=== PATIENT | female | born 1940 | race Caucasian/White ===

== ENCOUNTER 2016-10-12 13:01 | Inpatient (IN) | payer MEDICARE, OTHER ==
[~2016-10-12 13:01] MED LIST: ALPHA LIPOIC A PO; BLUEBERRY PO; BORON PO; CALCIUM PO; CALCIUM WITH V1 EAC2 PO; COD LIVER OIL1 CAP PO; COLACE100 M1 PO; COQ10 PO; CVS LUTEIN 401 EACH PO; DIGESTIVE ENZY1 EAC3 PO; DULCOLAX10 MG PR; ESTRIOL VG; GARLIC1 CAP PO; GLUCOSAMINE HC500 M1 PO; HYALURONIC ACID PO; LEVOTHROID50 MCG PO; LEVOTHROID75 MCG PO; MAGNESIUM PO; MAGNESIUM100 M1 PO; MULTIVITAMIN1 TAB PO; POLYETHYLENE G255 G1 PO; SYNTHROID75 MC1 PO; TENORMIN25 MG PO; TYLENOL325 M2 PO; VITAMIN B COMPLEX PO; VITAMIN B1250 MCG PO; VITAMIN D3 PO; VITAMIN D31000 UNI3 PO; VITAMIN K240 MCG PO; [UNRECOGNIZED DRUG - OTHER] PO
[2016-10-12] MEDS ORDERED: FLUDROCORTISON0.1 M1 PO (13:12)
[2016-10-12] MEDS ORDERED: MIRTAZAPINE7.5 M1 PO (13:16)
[2016-10-12 18:04] LABS: BASO % 0.1 % (0-2); HCT-HEMATOCRIT 41.2 % (34.0-49.0); HGB-HEMOGLOBIN 13.3 gm/dl (12.0-15.5); IMMATURE GRANULOCYTES ABSOLUTE 0.01 tho/cmm (0-0.03); IMMATURE GRANULOCYTES PERCENT 0.1 % (0-0.3); LYMPH % 3.2 % (20-45); LYMPH ABSOLUTE COUNT 0.3 tho/cmm (0.8-4.5); MCH (MEAN CORPUSCULAR HGB) 30.6 pg (28.0-32.0); MCHC MEAN CORPUSCULAR HGB CONC 32.3 % (32.0-36.0); MCV (MEAN CELL VOLUME) 94.7 fl (82.0-96.0); MONO % 9.7 % (0-12); MONOCYTE ABSOLUTE COUNT 0.9 tho/cmm (0.0-1.2); NEUTROPHIL ABSOLUTE COUNT 8.3 tho/cmm (1.6-8.0); NEUTROPHIL-AUTOMATED 8.3 tho/cmm (1.6-8.0); NEUTROPHILS % 86.9 % (40-80); PLATELET COUNT 209 tho/cmm (150-450); RED BLOOD COUNT 4.35 mil/cmm (4.00-5.20); RED CELL DISTRIBUTION WIDTH 12.6 % (12.4-16.4); WHITE BLOOD COUNT 9.6 tho/cmm (4.0-10.0)
[2016-10-12 18:23] LABS: ALB/GLOB RATIO 0.6 (0.8-2.0); ALBUMIN 2.6 g/dl (3.5-5.0); ALKALINE PHOSPHATASE 88 U/L (33-138); ALT/SGPT 48 U/L (12-78); AMYLASE 54 U/L (20-90); ANION GAP 11 mmol/L (0-20); AST/SGOT 33 U/L (10-40); BILIRUBIN,TOTAL 0.5 mg/dl (0-1.5); BLOOD UREA NITROGEN 19 mg/dl (6-24); CALCIUM 8.7 mg/dl (8.5-10.5); CARBON DIOXIDE-VENOUS 33 mmol/L (22-32); CHLORIDE 110 mmol/l (96-110); GLUCOSE 98 mg/dL (70-110); LIPASE 102 U/L (73-393); POTASSIUM 3.5 mmol/L (3.7-5.1); SODIUM 150 mmol/L (135-145); eGFR VALUE FOR BLACK >90 mL/Min
[2016-10-12 18:27] LABS: TSH-THYROID STIMULATING HORM. 0.64 uIU/ml (0.40-3.80)
[2016-10-12 20:03] LABS: URINE BILIRUBIN NEGATIVE (NEG); URINE BLOOD SMALL (NEG); URINE GLUCOSE (UA) NEGATIVE (NEG); URINE KETONE LARGE (NEG); URINE LEUKOCYTE ESTERASE NEGATIVE (NEG); URINE NITRITE NEGATIVE (NEG); URINE PROTEIN MODERATE (NEG)
[2016-10-12 20:21] LABS: URINE APPEARANCE CLEAR; URINE COLOR YELLOW
[2016-10-12 20:22] LABS: URINE MUCUS 1+
[2016-10-14 06:32] LABS: BASO % 0.1 % (0-2); EOS % 0.7 % (0-7); EOSINOPHIL ABSOLUTE COUNT 0.1 tho/cmm (0.0-0.7); HGB-HEMOGLOBIN 13.5 gm/dl (12.0-15.5); IMMATURE GRANULOCYTES ABSOLUTE 0.02 tho/cmm (0-0.03); IMMATURE GRANULOCYTES PERCENT 0.2 % (0-0.3); LYMPH % 6.7 % (20-45); LYMPH ABSOLUTE COUNT 0.6 tho/cmm (0.8-4.5); MCH (MEAN CORPUSCULAR HGB) 30.6 pg (28.0-32.0); MCHC MEAN CORPUSCULAR HGB CONC 32.9 % (32.0-36.0); MONO % 9.4 % (0-12); MONOCYTE ABSOLUTE COUNT 0.8 tho/cmm (0.0-1.2); NEUTROPHIL ABSOLUTE COUNT 7.1 tho/cmm (1.6-8.0); NEUTROPHIL-AUTOMATED 7.1 tho/cmm (1.6-8.0); NEUTROPHILS % 82.9 % (40-80); PLATELET COUNT 208 tho/cmm (150-450); RED BLOOD COUNT 4.41 mil/cmm (4.00-5.20); RED CELL DISTRIBUTION WIDTH 12.2 % (12.4-16.4); WHITE BLOOD COUNT 8.5 tho/cmm (4.0-10.0)
[2016-10-14 06:50] LABS: ANION GAP 9 mmol/L (0-20); BLOOD UREA NITROGEN 8 mg/dl (6-24); CALCIUM 8.8 mg/dl (8.5-10.5); CARBON DIOXIDE-VENOUS 32 mmol/L (22-32); CHLORIDE 106 mmol/l (96-110); CREATININE 0.36 mg/dl (0.50-1.10); GLUCOSE 126 mg/dL (70-110); MAGNESIUM 1.9 mg/dl (1.3-2.6); POTASSIUM 3.2 mmol/L (3.7-5.1); SODIUM 144 mmol/L (135-145); eGFR VALUE FOR BLACK >90 mL/Min
[2016-10-15 04:08] LABS: BASO % 0.3 % (0-2); EOS % 1.4 % (0-7); EOSINOPHIL ABSOLUTE COUNT 0.1 tho/cmm (0.0-0.7); HCT-HEMATOCRIT 42.5 % (34.0-49.0); HGB-HEMOGLOBIN 13.9 gm/dl (12.0-15.5); IMMATURE GRANULOCYTES ABSOLUTE 0.03 tho/cmm (0-0.03); IMMATURE GRANULOCYTES PERCENT 0.3 % (0-0.3); LYMPH ABSOLUTE COUNT 0.7 tho/cmm (0.8-4.5); MCH (MEAN CORPUSCULAR HGB) 30.3 pg (28.0-32.0); MCHC MEAN CORPUSCULAR HGB CONC 32.7 % (32.0-36.0); MCV (MEAN CELL VOLUME) 92.6 fl (82.0-96.0); MEAN PLATELET VOLUME 9.8 cmc (9.4-12.4); MONO % 8.9 % (0-12); MONOCYTE ABSOLUTE COUNT 0.8 tho/cmm (0.0-1.2); NEUTROPHIL ABSOLUTE COUNT 7.2 tho/cmm (1.6-8.0); NEUTROPHIL-AUTOMATED 7.2 tho/cmm (1.6-8.0); NEUTROPHILS % 81.1 % (40-80); PLATELET COUNT 218 tho/cmm (150-450); RED BLOOD COUNT 4.59 mil/cmm (4.00-5.20); RED CELL DISTRIBUTION WIDTH 12.4 % (12.4-16.4); WHITE BLOOD COUNT 8.8 tho/cmm (4.0-10.0)
[2016-10-15 05:15] LABS: ANION GAP 9 mmol/L (0-20); BLOOD UREA NITROGEN 5 mg/dl (6-24); CALCIUM 8.5 mg/dl (8.5-10.5); CARBON DIOXIDE-VENOUS 31 mmol/L (22-32); CHLORIDE 105 mmol/l (96-110); CREATININE 0.29 mg/dl (0.50-1.10); GLUCOSE 106 mg/dL (70-110); POTASSIUM 3.9 mmol/L (3.7-5.1); SODIUM 141 mmol/L (135-145); eGFR VALUE FOR BLACK >90 mL/Min
[2016-10-16 05:17] LABS: ANION GAP 8 mmol/L (0-20); BLOOD UREA NITROGEN 6 mg/dl (6-24); CALCIUM 9.2 mg/dl (8.5-10.5); CARBON DIOXIDE-VENOUS 34 mmol/L (22-32); CHLORIDE 105 mmol/l (96-110); CREATININE 0.38 mg/dl (0.50-1.10); GLUCOSE 103 mg/dL (70-110); POTASSIUM 3.8 mmol/L (3.7-5.1); SODIUM 143 mmol/L (135-145); eGFR VALUE FOR BLACK >90 mL/Min
[2016-10-17 06:27] LABS: ANION GAP 8 mmol/L (0-20); BLOOD UREA NITROGEN 9 mg/dl (6-24); CALCIUM 9.1 mg/dl (8.5-10.5); CARBON DIOXIDE-VENOUS 34 mmol/L (22-32); CHLORIDE 104 mmol/l (96-110); GLUCOSE 91 mg/dL (70-110); POTASSIUM 3.9 mmol/L (3.7-5.1); SODIUM 142 mmol/L (135-145)
[2016-10-17 06:30] LABS: CREATININE 0.48 mg/dl (0.50-1.10); eGFR VALUE FOR BLACK >90 mL/Min
[2016-10-19 06:30] LABS: ANION GAP 11 mmol/L (0-20); BLOOD UREA NITROGEN 16 mg/dl (6-24); CARBON DIOXIDE-VENOUS 34 mmol/L (22-32); CHLORIDE 101 mmol/l (96-110); CREATININE 0.47 mg/dl (0.50-1.10); GLUCOSE 76 mg/dL (70-110); MAGNESIUM 2.1 mg/dl (1.3-2.6); PHOSPHOROUS 3.3 mg/dl (2.5-4.9); POTASSIUM 4.2 mmol/L (3.7-5.1); SODIUM 142 mmol/L (135-145); eGFR VALUE FOR BLACK >90 mL/Min
--- NOTE | 2016-10-20 10:19 | NUR ---
PRESENT FOR VISIT WITH DR PINO, THEN STAYED AND SPOKE W PT. KATHY'S GOAL IS TO INCREASE STRENGTH, SHE MENTIONED HOSPICE AND STATED SHE IS NOT INTERSESTED IN THAT BECAUSE IT MEANS TO HER. REINFORCED DR PINO'S INFO THAT TO ACHIEVE PTS GOAL OF GETTING STRONGER SHE WILL HAVE TO USE HER MUSCLES - PARTICIPATE IN P.T. PT VERBALIZED UNDERSTANDING OF WHY SHE NEEDS TO EXERCISE. ALSO VERBALIZED REASON TO SIT UP AT LEAST AN HOUR AFTER HER TUBE FEED. PT SPOKE OF PAST SUCCESS WITH EXERCISING, ENCOURAGED HER TO USE THOSE PAST STRENGTHS TO ACHIEVE HER GOAL. PT WAS ABLE TO STATE HER PLAN TO ACHIEVE HER GOAL TO INCREASE STRENGTH. SHE WILL TAKE RESPONSIBILITY FOR HER CHOICES TO DO WHAT IS NECESSARY TO ACCOMPLISH HER GOALS. HER PRIMARY GOAL IS TO GET BACK HOME WITH HER CAT, NAHEED. SUPPORT GIVEN. BELONGINGS PACKED FOR TRANSFER TODAY TO [facility].
--- NOTE | 2016-10-20 11:23 | NUR ---
pt signed dnr/dni, copy to elizabeth mccabe and chart. pt wanting to use the bedpan, encouraged her to choose to walk to the BR. Pt refused. Reminded pt of her goal and consequence of choices. Pt is happy with choice to use Bedpan.
== END 2016-10-20 12:25 | DRG 391 ==
LOC: 5WF 13:01
PROVIDERS: Family Medicine; Hospitalist; Internal Medicine; Nurse Practitioner; ADMIT Family Medicine
PROC: 0DB58ZX Excision of Esophagus, Via Natural or Artificial Opening Endoscopic, Diagnostic (ICD-10-PCS; principal; 2016-10-14)
PROC: 0D758ZZ Dilation of Esophagus, Via Natural or Artificial Opening Endoscopic (ICD-10-PCS; 2016-10-14)
PROC: 0DH63UZ Insertion of Feeding Device into Stomach, Percutaneous Approach (ICD-10-PCS; 2016-10-18)
DX: K22.4 Dyskinesia of esophagus (principal); E43 Unspecified severe protein-calorie malnutrition; E87.0 Hyperosmolality and hypernatremia; R13.10 Dysphagia, unspecified; Q79.6 Ehlers-Danlos syndromes; Z68.1 Body mass index [BMI] 19.9 or less, adult; T17.920A Food in respiratory tract, part unspecified causing asphyxiation, initial encounter; I34.0 Nonrheumatic mitral (valve) insufficiency; R62.7 Adult failure to thrive; E03.9 Hypothyroidism, unspecified; I95.1 Orthostatic hypotension; Z85.42 Personal history of malignant neoplasm of other parts of uterus; Z88.0 Allergy status to penicillin; Z88.8 Allergy status to other drugs, medicaments and biological substances; R12 Heartburn; Z66 Do not resuscitate; E87.6 Hypokalemia; Z51.5 Encounter for palliative care
CPT/HCPCS: C1769; J0690; J3480; J7030